=== PATIENT | male | born 1965 | race Caucasian/White ===

== ENCOUNTER 2020-05-29 05:55 | Emergency (ER) | payer OTHER, SELFPAY ==
--- NOTE | 2020-05-29 | XR_ITS ---
EXAMINATION: XR FOOT, LEFT CLINICAL INFORMATION: Laceration. COMPARISON: None TECHNIQUE: AP, lateral, and oblique views of the left foot. FINDINGS: No acute osseous abnormalities. Degenerative changes of the first metatarsophalangeal joint and associated bunion. Small dorsally projecting marginal osteophytes throughout the intertarsal articulations. Osseous alignment maintained. Small plantar and posterior calcaneal enthesophytes. Os trigonum. Soft tissues are unremarkable without evidence of radiopaque foreign body. XR/XR foot LT min 3V IMPRESSION: No acute osseous abnormalities. No radiopaque foreign bodies.
[2020-05-29 05:59] VITALS: BP 136/80; PULSE 70; RESP 16; TEMP 36.7; O2SAT 99; BMI 55.0
--- NOTE | 2020-05-29 06:23 | ED.WOUNDLAC ---
HPI - Wound/Laceration General Chief Complaint: Wound/Laceration Stated Complaint: lac Time Seen by Provider: 05/29/20 06:23 Source: patient Mode of arrival: EMS Limitations: no limitations History of Present Illness HPI narrative: This is a 54-year-old male with history of diabetes who presents after having rolled over in bed an his left heel striking the door in his sister's house causing the glass to break resulting in the laceration to the left Achilles area. He is unsure of his last tetanus vaccine. Related Data Allergies Allergy/AdvReac Type Severity Reaction Status Date / Time No Known Allergies Allergy Verified 05/29/20 06:05 Review of Systems Review of Systems: Pertinent positives and negatives as stated in HPI 10 point review of systems is otherwise negative. [facility] Past Medical History Source: nursing notes reviewed Social History Social History Smoked in Last 30 Days: No Use of substances other than those prescribed or required for medical reasons: No Advance Directives: No Advance Directives Information Provided: No Physical Exam Vital Signs: Vital Signs: Last Vital Signs Temp 98.1 F 05/29/20 05:59 Pulse 68 05/29/20 08:13 Resp 16 05/29/20 08:13 BP 145/89 H 05/29/20 08:13 Pulse Ox 99 05/29/20 05:59 Body Mass Index 55.0 VITAL SIGNS: Reviewed. GENERAL: Well developed, well nourished, in no acute distress. HEAD: Normocephalic/atraumatic, EYES: PERRLA, EOMI intact without pain, no nystagmus/pallor/icterus noted EARS: Ext canals without abnormality, TMs non-bulging and non-erythematous NOSE: Nares patent bilateral OROPHARYNX: no oral lesions noted, posterior pharynx clear and non-erythematous without noted tonsillar enlargement/erythema/exudates NECK: Supple, no adenopathy LUNGS: Normal breath sounds. No adventitious sounds or accessory muscle use. SpO2<99> CARDIOVASCULAR: Regular rate and rhythm without noted murmurs, no JVD or lower extremity edema. ABDOMEN: Soft, non-tender, non-distended with bowel sounds. No rigidity. No guarding. No palpable masses or hernias noted MUSCULOSKELETAL: No tenderness, deformities, or effusions noted on gross inspection. EXTREMITIES: No cyanosis, clubbing or edema; LEFT HEEL: Jagged approximate 4.5 cm laceration superficial to the Achilles, however on evaluation of range of motion patient appears to have full plantar and dorsiflexion, the laceration is hemostatic, laceration #2 is distal to that and more superficial/hemostatic and approximately 3 cm SKIN: Inspection of the skin reveals no rashes, ulcerations, jaundice, pallor, or petechiae. NEUROLOGIC: Alert and oriented x 4. Strength and sensation to light touch were grossly intact x 4. Course Course Course Narrative: This is a 54-year-old male with history and clinical presentation consistent with accidental laceration to the left distal heel superficial to the Achilles without any evidence tendinous injury. Patient will have the laceration repaired and receive a tetanus vaccine after evaluation with x-ray for any residual foreign body. X-ray negative for foreign body. Procedures Laceration Laceration 1: Site: lower extremity (Heel) Side (If applicable): left Size (cm): 5 Description: stellate, flap, irregular and clean Depth: involves muscle layer Local Anesthetic: lidocaine 2% and with epi Amount of anesthesia used (mL): 5 Pre-repair: wound explored, irrigated extensively and deep structures intact Skin layer closed with: nylon (#11) Size (cm): 4-0 Number of sutures: 9 Technique: simple, interrupted and other (1 vertical) Subcutaneous layer closed with: vicryl Size: 4-0 Number of sutures: 2 Laceration 2: Site: lower extremity (Heel) Side (If applicable): left Size (cm): 4 Description: linear and flap Depth: simple, single layer Local Anesthetic: lidocaine 2% and with epi Amount of anesthesia used (mL): 3 Pre-repair: wound explored, irrigated extensively and deep structures intact Skin layer closed with: nylon and vicryl Size (cm): 4-0 Number of sutures: 6 Technique: simple, interrupted Discharge Plan Discharge Clinical Impression: Laceration Patient Disposition: Home, Self-Care Instructions: Laceration (ED) Referrals: Physician,None [Primary Care Provider] - 2 days (Re-evaluation of left foot laceration) Print Language: Lithuanian
[2020-05-29] MEDS: Lidocaine HCl 2%/Epi 1:100,000 20 ML VIAL INFILTRATI (06:36)
--- NOTE | 2020-05-29 06:49 | PC.NURSE ---
PT A&O , NO SOB , NO CHEST PAIN. PT HAS LEFT HEAL LACERATION, BLEEDING IS CONTROL, PROVIDER IN TO ASSESS PT. POSITIVE CMS AND PEDAL PULSES
--- NOTE | 2020-05-29 08:12 | PC.NURSE ---
lac closed by dr nava at bedside. this rn in to wrap wound site, cover w bacitracin ointment. awaiting discharge paper work. pt nad in stretcher.
[2020-05-29 08:13] VITALS: BP 145/89; PULSE 68; RESP 16
== END 2020-05-29 08:30 | disposition home or self-care (01) ==
PROVIDERS: Emergency Provider Student in an Organized Health Care Education/Training Program
DX: S91.312A Laceration without foreign body, left foot, initial encounter (principal); W25.XXXA Contact with sharp glass, initial encounter; Y93.84 Activity, sleeping; Y92.013 Bedroom of single-family (private) house as the place of occurrence of the external cause; Y99.9 Unspecified external cause status
CPT/HCPCS: 12002; 12042; 73630; 90471; 90715; 99284